=== PATIENT | female | born 1950 | race Caucasian/White ===

== ENCOUNTER 2019-10-24 18:26 | Observation (INO) | payer MEDICARE ==
[~2019-10-24] VITALS: Ht 160 cm; Wt 88.9 kg
[2019-10-24 18:33] VITALS: BP_SYST 201; BP_SYST 207; BP_DIAS 81; BP_DIAS 99
[2019-10-24] MEDS ORDERED: SUBLIMAZE IV STA ×2 (19:08→20:28)
[2019-10-24] MEDS ORDERED: ATIVAN IV STA ×2 (19:08→20:28)
[2019-10-24] MEDS ORDERED: VENTOLIN IH STA (19:08)
[2019-10-24] MEDS ORDERED: DECADRON IH STA (19:08)
[2019-10-24] MEDS ORDERED: ATIVAN ONE (19:20)
[2019-10-24] MEDS ORDERED: SUBLIMAZE ONE (19:20)
--- NOTE | 2019-10-24 19:30 | ER.PDOC ---
General Chief Complaint: Extremities Stated Complaint: HIP PAIN Time seen by MD: 18:55 Source: patient, family Exam Limitations: no limitations History of Present Illness Initial Comments Patient c/o severe left hip/pelvis pain onset last night, progressively worsening until she is unable to ambulate at all. No history of fall or injury. She has had 2 surgeries on left hip (a total left hip and a revision, last surgery 2015). She also c/o persistent cough since July that was finally determined to be d/t massiel inhibitor. Dr. Hernandez changed her from enalipri to losartan this past week. Timing/Duration: yesterday Where Occured: home Quality: severe (rates pain 9/10), constant, sharp, stabbing Location: hip (L), pelvis Other Injuries: none (no report of any injury) Allergies: Coded Allergies: No Known Allergies (Unverified , 04/09/17) Past Medical History Medical History: arrhythmia, cardiac problems, diabetes, hypertension, thyroid disease Surgical History: hip, knee, shoulder, other Social History Alcohol Use: none Drug Use: none Review of Systems Constitutional: no symptoms reported EENTM: no symptoms reported Respiratory: cough (persistent, dry, wheezy cough since July of this year) Cardiovascular: no symptoms reported Gastrointestinal: no symptoms reported Musculoskeletal: joint pain (left hip/pelvis; no history of fall or recent injury) Skin: no symptoms reported Physical Exam General Appearance: No Apparent Distress, Obese Extremities: non-tender, no obvious injury, no pedal edema, hip pain on movement (left) Cardiovascular/Respiratory: Regular Rate, Rhythm, No Respiratory Distress, Wheezing (expiratory) Abdominal: Non-Tender Back: Other (tender low lumbar and sacrum) Extremities: No Evidence of Injury, No Pedal Edema, Pelvis Stable Neuro/Psych: Alert, mood/effect nml Skin: Normal Color Results/Orders Results/Orders Orders - CHEMO SKY DO Albuterol Sulfate (Ventolin) (10/24/19 19:08) Dexamethasone Sodium Phosphate (Decadron (10/24/19 19:08) Fentanyl Citrate/Pf (Sublimaze) (10/24/19 19:08) Lorazepam (Ativan) (10/24/19 19:08) Cbc With Auto Diff (10/24/19 19:08) Comprehensive Metabolic Panel (10/24/19 19:08) Ct Lumbar Wo Contrast (10/24/19 19:08) Ct Pelvis Wo Iv Contrast (10/24/19 19:08) Fentanyl Citrate/Pf (Sublimaze) (10/24/19 19:20) Lorazepam (Ativan) (10/24/19 19:20) Albuterol Sulfate (Ventolin) (10/24/19 19:38) Dexamethasone Sodium Phosphate (Decadron (10/24/19 19:38) Lorazepam (Ativan) (10/24/19 20:28) Fentanyl Citrate/Pf (Sublimaze) (10/24/19 20:28) Vital Signs Date Time Temp Pulse Resp B/P (MAP) Pulse Ox O2 Delivery O2 Flow Rate FiO2 10/24/19 19:59 69 18 92 10/24/19 19:48 78 18 94 10/24/19 18:33 98.7 83 18 207/99 (135) 96 Room Air 10/24/19 18:33 98.7 83 18 96 10/24/19 18:33 98.7 83 18 Administered Medications Medications (Trade) Dose Ordered Sig/Gill Route PRN Reason Start Time Stop Time Status Last Admin Dose Admin Albuterol Sulfate (Ventolin) 2.5 mg STAT STAT IH 10/24/19 19:08 10/24/19 19:13 DC 10/24/19 19:45 2.5 MG Fentanyl Citrate (Sublimaze) 100 mcg STAT STAT IV 10/24/19 19:08 10/24/19 19:13 DC 10/24/19 19:32 100 MCG Lorazepam (Ativan) 1 mg STAT STAT IV 10/24/19 19:08 10/24/19 19:13 DC 10/24/19 19:32 1 MG Laboratory Tests Test 10/24/19 19:20 White Blood Count 16.8 10^3/uL (4.5-11.0) H Red Blood Count 4.59 10^6/uL (4.00-5.20) Hemoglobin 12.6 g/dL (12.0-15.0) Hematocrit 35.8 % (36.0-46.0) L Mean Corpuscular Volume 78.0 fL (78-100) Mean Corpuscular Hemoglobin 27.5 pg (26-34) Mean Corpuscular Hemoglobin Concent 35.2 g/dL (33-36.5) Red Cell Distribution Width 14.1 % (11.5-14.5) Platelet Count 407 10^3/uL (150-400) H Mean Platelet Volume 9.1 fL (7.8-11.0) Neutrophils (%) (Auto) 88.5 % (41.0-85.0) H Lymphocytes (%) (Auto) 7.4 % (24.0-44.0) L Monocytes (%) (Auto) 3.7 % (5.0-12.0) L Neutrophils # (Auto) 14.9 10^3/uL (1.8-7.7) H Lymphocytes # (Auto) 1.25 10^3/uL1 (1.0-4.8) Monocytes # (Auto) 0.6 10^3/uL (0.3-0.8) Absolute Immature Granulocyte (auto 0.05 10^3 u/L (0-2) Absolute Eosinophils (auto) 0.0 10^3/uL (0.0-0.2) Immature Granulocytes % 0.30 % (0.00-0.50) Eosinophils % 0.0 % (0.0-5.0) Basophils % 0.1 % (0.0-0.2) Basophils # 0.0 10^3/uL (0.0-0.1) Sodium Level 120 mmol/L (132-145) *L Potassium Level 4.2 mmol/L (3.6-5.2) Chloride Level 85.0 mmol/L (96-109) L Carbon Dioxide Level 20.8 mmol/L (20.0-32) Anion Gap 18.4 Blood Urea Nitrogen 21 mg/dL (7-18) H Creatinine 0.92 mg/dL (0.59-1.40) Estimated GFR () 72.8 (>/=60) Est GFR (CKD-EPI)(Non-Afr Georgian) 60.2 (>/=60) BUN/Creatinine Ratio 22.0 Glucose Level 193 mg/dL (70-110) H Calcium Level 9.1 mg/dL (8.4-10.5) Total Bilirubin 0.5 mg/dL (0.2-1.0) Aspartate Amino Transferase (AST) 21 U/L (0-35) Alanine Aminotransferase (ALT) 21 U/L (12-78) Alkaline Phosphatase 67 U/L (50-136) Total Protein 7.0 g/dL (6.4-8.2) Albumin 3.8 g/dL (3.4-5.0) Globulin 3.2 Progress Progress sodium 120 EKG/XRAY/CT/US CT Comments: larg mass within left iliacus muscle; likely represents IM hemorrhage Consult/PCP Time Consult/PCP Called: 20:32 Consult/PCP: Dr. Shoemaker Reason/Comments: will admit #2 Time Consult/PCP Called: 20:36 Consult/PCP: Dr. Drake Reason/Comments: will consult--hold Eliquis Departure Time of Disposition: 20:36 Disposition: 09 ADMITTED INPATIENT Impression: Primary Impression: Intramuscular hematoma Additional Impression: Hyponatremia Condition: Improved Referrals: ESTEBAN HERNANDEZ MD (PCP) PRIMARY CARE PROVIDER Duration or Time Spent with Pa: 30 min Problem Qualifiers CHEMO SKY DO Oct 24, 2019 19:30
[2019-10-24 19:31] LABS: BASOPHIL % 0.1 % (0.0-0.2); LYMPHOCYTES # 1.25 10^3/uL1 (1.0-4.8); LYMPHOCYTES % 7.4 % (24.0-44.0); MEAN CORP HGB 27.5 pg (26-34); MONOCYTES # 0.6 10^3/uL (0.3-0.8); MONOCYTES % 3.7 % (5.0-12.0); NEUTROPHIL # 14.9 10^3/uL (1.8-7.7); NEUTROPHILS % 88.5 % (41.0-85.0); PLATELET COUNT 407 10^3/uL (150-400); RED CELL DISTRIBUTION WIDTH 14.1 % (11.5-14.5)
[2019-10-24] MEDS ORDERED: DECADRON ONE (19:38)
[2019-10-24] MEDS ORDERED: VENTOLIN IH ONE (19:38)
[2019-10-24 19:41] LABS: CALCIUM 9.1 mg/dL (8.4-10.5); CARBON DIOXIDE 20.8 mmol/L (20.0-32)
--- NOTE | 2019-10-24 20:04 | DIREP ---
PROCEDURE: CT SPINE LUMBAR W/O TECHNIQUE:Axial cuts were obtained through the lumbar spine. The images were viewed at bone settings. COMPARISON:None. INDICATIONS:low back pain with sciatica- hip replacement 2010, revision 2013 FINDINGS: ALIGNMENT:Grade 1 anterolisthesis of 7.4 mm of L4 with respect L5. VERTEBRAE:No evidence of acute fracture. There are large bridging enthesophyte seen laterally in the lower thoracic spine. There are large posterior osteophytes bridging L1-L2 that extend posteriorly by 9.6 mm and results in central canal stenosis. PARASPINAL AREA:Normal. 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 LUMBAR DISC LEVELS T12-L1:Severe loss of disc space with vacuum disc phenomena. Calcifications seen along the posterior aspect of the annulus with disc protrusion of 6.1 mm. L1-L2:Complete loss of disc space with trace vacuum disc phenomena and large bridging central enthesophytes results in significant high-grade central canal stenosis with AP dimension of the central canal measuring 5.3 mm. L2-L3:Right paracentral and foraminal disc protrusion that abuts the cord with AP dimension of the canal measuring 6.1 mm and stenosis of the right neural foramina. L3-L4:Mild loss of disc space. L4-L5:Marked loss of disc space. Anterolisthesis with ligamentum flavum and facet hypertrophy results in high-grade central canal stenosis with the AP diameter of the central canal of 4.7 mm. L5-S1:Marked loss of disc space with vacuum disc phenomena. CONCLUSION: No evidence of acute fracture. Multilevel degenerative disc and facet changes. This results in high-grade stenosis segment 2 large bridging bony osteophytes at L1/L2 and high-grade central canal stenosis of L4/L5 secondary to grade 1 anterolisthesis. MRI may prove helpful. Dictated by: Luis Daniel Bautista MD on 10/24/2019 at 07:54 PM
--- NOTE | 2019-10-24 20:07 | DIREP ---
PROCEDURE:CT PELVIS W/O COMPARISON:None. INDICATIONS:left pelvic pain with radiculopathy- hip replacement 2010, revision 2013 TECHNIQUE:Axial images were created through the pelvis without intravenous contrast material. No oral contrast was administered. Sagittal and coronal reconstructions were performed from source images. FINDINGS: AORTA/VASCULAR:There are aortic atherosclerotic calcifications present. No aneurysm. RETROPERITONEUM:Normal. No mass or adenopathy. BOWEL/MESENTERY:Normal. There is no intestinal obstruction, free fluid, free air or mesenteric inflammatory changes. ABDOMINAL WALL:Normal. No mass or hernia. PELVIC ORGANS:The uterus contains numerous calcifications within it. The ovaries are unremarkable. There is a slightly increased density mass seen within the left iliacus muscle that overall measures 5.8 x 5.5 x 8.6 cm in AP, transverse, and craniocaudal extent. BONES:Left hip prosthesis. Degenerative changes are seen in the spine. Moderate degenerative changes of the right hip. OTHER:Negative. CONCLUSION: 1. Mass within the musculature of the left iliacus muscle. This probably represents intramuscular hemorrhage. 2. Total left hip prosthesis. No dislocation. 3. Moderate degenerative changes in the right hip. Dictated by: Luis Daniel Bautista MD on 10/24/2019 at 08:03 PM
[2019-10-24] MEDS ORDERED: NS 1000ML 1,000 ML STA (20:34)
[2019-10-24] MEDS ORDERED: NS 1000ML 1,000 ML IV ONE (21:00)
[2019-10-24] MEDS ORDERED: ATIVAN IV PRN (21:00)
[2019-10-24] MEDS ORDERED: SUBLIMAZE IV PRN (21:00)
[2019-10-24] MEDS ORDERED: ZOFRAN IV PRN (21:00)
[2019-10-24] MEDS ORDERED: APIX5TAB PO (21:19)
[2019-10-24] MEDS ORDERED: OLME1TAB29 PO (21:19)
[2019-10-24] MEDS ORDERED: HYDR25TA9 PO (21:19)
[2019-10-24] MEDS ORDERED: MELO15TA24 PO (21:19)
[2019-10-24] MEDS ORDERED: METF-713 PO (21:19)
[2019-10-24] MEDS ORDERED: CARV3.122 PO (21:19)
[2019-10-24] MEDS ORDERED: VERA240C2 PO (21:19)
[2019-10-24] MEDS ORDERED: DEXL60CA2 PO (21:41)
[2019-10-24] MEDS ORDERED: ASPI-485 PO (21:41)
[2019-10-24] MEDS ORDERED: MAGN61TA PO (21:41)
[2019-10-24] MEDS ORDERED: DOXY100C2 PO (21:41)
[2019-10-24] MEDS ORDERED: GLIM1TAB7 PO (21:41)
[2019-10-24] MEDS ORDERED: CYCL10TA2 PO (21:41)
--- NOTE | 2019-10-24 22:20 | NUR ---
Arrival Pt arrived to floor via bed, received report from ER nurse and assumed care. No signs of distress noted nor reported.
[2019-10-24 23:00] VITALS: BP 184/102
[2019-10-24] MEDS: DILAUDID IV PRN (23:08)
[2019-10-25] VITALS: BP 184/102
[2019-10-25 04:35] VITALS: BP 132/90
[2019-10-25 06:01] LABS: BASOPHIL % 0.2 % (0.0-0.2); EOSINOPHIL % 0.1 % (0.0-5.0); LYMPHOCYTES # 2.21 10^3/uL1 (1.0-4.8); MEAN CORP HGB 27.5 pg (26-34); MONOCYTES % 7.3 % (5.0-12.0); NEUTROPHIL # 9.8 10^3/uL (1.8-7.7); NEUTROPHILS % 75.2 % (41.0-85.0); PLATELET COUNT 373 10^3/uL (150-400); RED CELL DISTRIBUTION WIDTH 14.5 % (11.5-14.5)
[2019-10-25 06:19] LABS: CALCIUM 8.8 mg/dL (8.4-10.5); CARBON DIOXIDE 25.7 mmol/L (20.0-32)
--- NOTE | 2019-10-25 07:11 | PCM.HP ---
History of Present Illness Reason for Visit: (1) Intramuscular hematoma ICD Code: T14.8XXA - Other injury of unspecified body region, initial encounter SNOMED: 819993019 (2) Hyponatremia ICD Code: E87.1 - Hypo-osmolality and hyponatremia SNOMED: 93768128 Hx of Present Illness Patient c/o severe left hip/pelvis pain onset last night, progressively worseni ng until she is unable to ambulate at all. No history of fall or injury. She has had 2 surgeries on left hip (a total left hip and a revision, last surgery 2015). She also c/o persistent cough since July that was finally determined to be d/t massiel inhibitor. Dr. Hernandez changed her from enalipril to losartan this past week. Hyponatremia has improved from 120 126 after overnight IV hydration. Increase of less than 1/2mmol/h. Patient does not endorse any symptoms associated with this. Patient does state that her pain is improving and she would like to mobilize to see if she is able to tolerate mobility to the degree where she could go home blood thinner has been held due to bleeding she takes Eliquis due to cardiac arrhythmia spoke with patient and her and they will advise the cardiology clinic of this change which will be short-term in the setting of an acute bleed we will use SCDs rather than medical anticoagulation due to the bleeding Travel History EBOLA RISK:Travel to/contact w: No Review of Systems Constitutional: No: Fever, Chills, Sweats, Weakness, Malaise, Other Eyes: No: Pain, Vision change, Conjunctivae inflammation, Eyelid inflammation, Other, Redness ENT: No: Ear pain, Ear discharge, Nose pain, Nose discharge, Nose congestion, Mouth pain, Mouth swelling, Throat pain, Throat swelling, Other Respiratory: No: Cough, Dry, Shortness of breath, SOB with excertion, Wheezing, Hemoptysis, Pleuritic Pain, Sputum, Wheezing, Other Cardiovascular: No: Chest Pain, Palpitations, Orthopnea, Paroxysmal Noc. Dyspnea, Edema, Lt Headedness, Other Gastrointestinal: No: Nausea, Vomiting, Abdominal Pain, Diarrhea, Constipation, Melena, Hematochezia, Other Genitourinary: No Dysuria, No Frequency, No Incontinence, No Hematuria, No Retention, No Other Musculoskeletal: other (Pain in left pelvis and left hip consistent with iliacus muscle hematoma); No: neck pain, shoulder pain, arm pain, back pain, hand pain, leg pain, foot pain Skin: No: Rash, Lesions, Jaundice, Bruising, Other Neurological: No: Weakness, Numbness, Incoordination, Change in speech, Confusion, Seizures, Other Allergies: Coded Allergies: No Known Allergies (Unverified , 04/09/17) Scheduled Apixaban (Eliquis), 5 MG PO BID, (Reported) Aspirin (Aspir 81), 81 MG PO DAILY24, (Reported) Carvedilol (Carvedilol), 3.125 MG PO BID, (Reported) Cyclobenzaprine Hcl (Flexeril), 10 MG PO TID, (Reported) Dexlansoprazole (Dexilant), 60 MG PO DAILY24, (Reported) Doxycycline Hyclate (Doxycycline Hyclate), 100 MG PO BID, (Reported) Glimepiride (Glimepiride), 1 MG PO DAILY24, (Reported) Hydrochlorothiazide (Hydrochlorothiazide), 25 MG PO DAILY24, (Reported) Magnesium Aspartate Hcl (Maginex), 400 MG PO BID, (Reported) Meloxicam (Meloxicam), 15 MG PO DAILY24, (Reported) Metformin Hcl (Metformin Hcl Er), 500 MG PO BID, (Reported) Olmesartan Med/Amlodipine/Hctz (Tribenzor 40-5-12.5 Mg Tablet), 1 EACH PO DAILY24, (Reported) Verapamil Hcl (Verapamil Er), 80 MG PO BID, (Reported) VTE VTE Risk Total Score: 2 VTE Risk Score VTE Risk: Score 0-1 = Low Risk (Aggressive mobilization; early ambulation; no VTE prophylaxis required) Score 2: Moderate Risk (Intermittent/Pneumatic Compression Device OR Lovenox/Heparin/Coumadin) Score 3-4: High Risk (Intermittent/Pneumatic Compression Device AND Lovenox/Heparin/Coumadin) Score > or =5: Highest Risk (Intermittent/Pneumatic Compression Device AND Lovenox/Heparin/Coumadin) Mechanical device ordered: Yes VTE VTE Present on Admission: No Currently receiving anticoagul: No VTE Risk Total Score: 2 Mechanical device ordered: Yes Exam Vital Signs Vital Signs Date Time Temp Pulse Resp B/P (MAP) Pulse Ox O2 Delivery O2 Flow Rate FiO2 10/25/19 04:35 97.5 74 16 132/90 (104) 94 Room Air General Appearance: Alert, Oriented X3 HEENT: Atraumatic, PERRLA, EOMI Respiratory: Clear to auscultation, Normal air movement Cardiovascular: Regular rate, Normal S1 Abdominal: Normal bowel sounds Extremities: No clubbing, No cyanosis, Other (Tenderness overlying left iliac is muscle with flexion of the left hip) Skin: No rash, No breakdown Neuro: Normal gait, Normal speech, Strength at 5/5 X4 ext, Normal tone, Sensation intact, Cranial nerves 3-12 NL Psych/Mental Status: Mental status NL, Mood NL Assessment/Plan Assessment/Plan Assessment/Plan Assessment 69-year-old female who takes chronic anticoagulation with Eliquis for cardiac arrhythmia who on Saturday started having increasing pain in her left hip that became severe interfering with her ability to walk which led her to call an ambulance to bring her to the ER CT CAT scan showed a 6 x 6 x 8 cm hematoma in her left iliac is muscle likely due to a spontaneous blood vessel rupture on Eliquis she did have hyponatremia at 120 but states that she has been asymptomatic with this. Dr. Drake with orthopedics kindly consulted and felt this is a nonsurgical problem that should resolve with conservative management and holding blood thinners Plan we will hold Eliquis for several days and have her restart in conjunction with her cardiology clinic mobilize as tolerated and monitor sodium with gentle IV hydration will restart home medications otherwise Problems: (1) Hyponatremia Status: Acute ICD Code: E87.1 - Hypo-osmolality and hyponatremia SNOMED: [id number] (2) Intramuscular hematoma Status: Acute ICD Code: T14.8XXA - Other injury of unspecified body region, initial encounter SNOMED: [id number] FRANCIA MCCAIN MD Oct 25, 2019 07:11
[2019-10-25] MEDS ORDERED: GLUCOPHAGE ONE (07:48)
[2019-10-25] MEDS ORDERED: ASPIRIN ONE (07:49)
[2019-10-25 07:55] VITALS: BP 181/99
[2019-10-25] MEDS: ASPIRIN EC PO SCH (07:59)
[2019-10-25] MEDS: AMARYL PO SCH (07:59)
[2019-10-25] MEDS: VIBRAMYCIN PO SCH ×2 (07:59→21:01)
[2019-10-25] MEDS: HYDROCHLOROTHIAZIDE PO SCH ×2 (07:59→09:00)
[2019-10-25] MEDS: FLEXERIL PO SCH ×3 (07:59→21:00)
[2019-10-25] MEDS: COREG PO SCH ×2 (07:59→21:01)
--- NOTE | 2019-10-25 07:59 | NUR ---
DR. TANYA MARTÍNEZ HERE TO SEE PT AT THIS TIME
[2019-10-25] MEDS ORDERED: NS 1000ML 1,000 ML IV ONE (08:00)
[2019-10-25] MEDS ORDERED: NORCO 5MG PO ONE (08:09)
[2019-10-25] MEDS: NORCO 5MG PO PRN ×3 (08:23→23:11)
--- NOTE | 2019-10-25 08:44 | HPH ---
ADMIT DATE: 10/25/2019 CHIEF COMPLAINT: Painful left hip. HISTORY OF PRESENT ILLNESS: The patient is a 69-year-old female who has been having pain about the left hip and upper leg for the last 2-3 days as my understanding. The patient does not recall any type of injury. She takes Eliquis for atrial fibrillation. The patient was having severe pain yesterday evening and was unable to ambulate without a cane. She was brought to the hospital where CT scan shows a mass within the left iliacus muscle probably consistent with an intramuscular hemorrhage. The patient again denies any type of an injury. She denies any fever or chills. She has had left total hip arthroplasty twice approximately 6 or 8 years ago. The patient states that she is some better this morning. PHYSICAL EXAMINATION: Exam today shows the patient is sitting up comfortably in her hospital bed, eating breakfast. She has no particular tenderness about the left thigh. There is no swelling about the left thigh. The patient is able to flex and extend her knee as well as the foot and ankle with no pain or weakness. There is normal sensation about the left lower extremity to light touch. She does have some pain with attempted hip flexion. The x-rays and subsequent CT scan show a mass within the musculature of the left iliacus muscle probably consistent with an intramuscular hemorrhage. Her total hip prosthesis appears to be intact and stable. ASSESSMENT: Intramuscular hemorrhage, left iliacus muscle. PLAN: I would advocate conservative treatment at this point including bed rest with holding of her blood thinners. I spoke with the hospitalist, she is in agreement. She has some other medical issues that the hospitalist is addressing. At this point, I do not recommend any surgical intervention. Derrick Drake MD DR: CADE/bhavin JOB# [id number]
[2019-10-25] MEDS: GLUCOPHAGE PO SCH ×2 (08:51→21:01)
[2019-10-25] MEDS: CALAN PO SCH ×2 (08:58→21:00)
[2019-10-25] MEDS: MOBIC PO SCH (08:58)
[2019-10-25] MEDS: PROTONIX PO SCH (08:58)
[2019-10-25] MEDS: COZAAR PO SCH (09:23)
[2019-10-25] MEDS: NORVASC PO SCH (09:23)
[2019-10-25] MEDS: DILAUDID IV PRN ×2 (16:21→23:28)
[2019-10-25] MEDS ORDERED: MAG-OX ONE (16:35)
[2019-10-25] MEDS: MAG-OX PO SCH (16:56)
[2019-10-25 16:57] VITALS: BP 153/80
[2019-10-25 19:10] VITALS: BP 136/64
[2019-10-25 23:40] VITALS: BP 132/67
[2019-10-26 04:16] VITALS: BP 132/62
[2019-10-26 05:08] LABS: BASOPHIL # 0.1 10^3/uL (0.0-0.1); BASOPHIL % 0.4 % (0.0-0.2); EOSINOPHIL % 0.1 % (0.0-5.0); LYMPHOCYTES # 1.77 10^3/uL1 (1.0-4.8); LYMPHOCYTES % 13.5 % (24.0-44.0); MEAN CORP HGB 27.8 pg (26-34); MONOCYTES # 0.7 10^3/uL (0.3-0.8); MONOCYTES % 5.5 % (5.0-12.0); NEUTROPHIL # 10.5 10^3/uL (1.8-7.7); PLATELET COUNT 403 10^3/uL (150-400); RED CELL DISTRIBUTION WIDTH 14.6 % (11.5-14.5)
[2019-10-26 05:25] LABS: CALCIUM 9.5 mg/dL (8.4-10.5); CARBON DIOXIDE 27.3 mmol/L (20.0-32)
[2019-10-26] MEDS: MAG-OX PO SCH (06:11)
[2019-10-26 08:26] VITALS: BP 147/75
[2019-10-26] MEDS: MOBIC PO SCH (08:33)
[2019-10-26] MEDS: ASPIRIN EC PO SCH (08:33)
[2019-10-26] MEDS: FLEXERIL PO SCH (08:34)
[2019-10-26] MEDS: HYDROCHLOROTHIAZIDE PO SCH ×2 (08:34→08:38)
[2019-10-26] MEDS: CALAN PO SCH (08:34)
[2019-10-26] MEDS: NORVASC PO SCH (08:34)
[2019-10-26] MEDS: NORCO 5MG PO PRN (08:34)
[2019-10-26] MEDS: PROTONIX PO SCH (08:35)
[2019-10-26] MEDS: GLUCOPHAGE PO SCH (08:35)
[2019-10-26] MEDS: AMARYL PO SCH (08:35)
[2019-10-26] MEDS: VIBRAMYCIN PO SCH (08:35)
[2019-10-26] MEDS: COREG PO SCH (08:35)
[2019-10-26] MEDS: COZAAR PO SCH (08:35)
[2019-10-26] MEDS ORDERED: HYDR-3468 PO (09:53)
--- NOTE | 2019-10-26 09:54 | PRM.DC ---
Subjective Subjective Date of Discharge: Oct 26, 2019 Time of Request to Discharge: 09:54 Subjective Patient feels much better today and has been ambulatory getting up and down pain has been controlled with Gravette. Patient will need a walker to ambulate at home Patient c/o severe left hip/pelvis pain onset last night, progressively worsening until she is unable to ambulate at all. No history of fall or injury. She has had 2 surgeries on left hip (a total left hip and a revision, last surgery 2015). She also c/o persistent cough since July that was finally determined to be d/t masisel inhibitor. Dr. Hernandez changed her from enalipril to losartan this past week. Hyponatremia has improved from 120 126 after overnight IV hydration. Increase of less than 1/2mmol/h. Patient does not endorse any symptoms associated with this. Patient does state that her pain is improving and she would like to mobilize to see if she is able to tolerate mobility to the degree where she could go home blood thinner has been held due to bleeding she takes Eliquis due to cardiac arrhythmia spoke with patient and her and they will advise the cardiology clinic of this change which will be short-term in the setting of an acute bleed we will use SCDs rather than medical anticoagulation due to the bleeding Exam Vital Signs Vital Signs Date Time Temp Pulse Resp B/P (MAP) Pulse Ox O2 Delivery O2 Flow Rate FiO2 10/26/19 08:38 147/75 10/26/19 08:35 59 10/26/19 08:26 97.6 18 99 Room Air General Appearance: Alert, Oriented X3, Cooperative HEENT: Atraumatic Respiratory: Clear to auscultation Cardiovascular: Regular rate Abdominal: Normal bowel sounds, Soft, No tenderness Extremities: No cyanosis, No edema, Other (Mild tenderness left hip) Skin: No rash, No breakdown, No lesions Neuro: Normal speech, Strength at 5/5 X4 ext, Normal tone, Cranial nerves 3-12 NL Psych/Mental Status: Mental status NL VTE VTE Risk Total Score: 2 VTE Risk Score VTE Risk: Score 0-1 = Low Risk (Aggressive mobilization; early ambulation; no VTE prophylaxis required) Score 2: Moderate Risk (Intermittent/Pneumatic Compression Device OR Lovenox/Heparin/Coumadin) Score 3-4: High Risk (Intermittent/Pneumatic Compression Device AND Lovenox/Heparin/Coumadin) Score > or =5: Highest Risk (Intermittent/Pneumatic Compression Device AND Lovenox/Heparin/Coumadin) Mechanical device ordered: Yes Objective Vitals and I/O Vital Sign - Last 24 Hours 10/25/19 10/25/19 10/25/19 10/25/19 15:50 16:57 19:10 20:02 Temp 97.8 97.7 Pulse 62 63 Resp 18 18 B/P (MAP) 153/80 (104) 136/64 (88) Pulse Ox 93 92 O2 Delivery Room Air Room Air Room Air Room Air 10/25/19 10/25/19 10/25/19 10/26/19 21:00 21:01 23:40 04:16 Temp 97.8 97.8 Pulse 63 63 60 60 Resp 18 18 B/P (MAP) 136/64 136/64 132/67 (88) 132/62 (85) Pulse Ox 92 91 O2 Delivery Room Air Room Air 10/26/19 10/26/19 10/26/19 10/26/19 08:26 08:34 08:34 08:34 Temp 97.6 Pulse 59 59 59 Resp 18 B/P (MAP) 147/75 (99) 147/75 147/75 147/75 Pulse Ox 99 O2 Delivery Room Air 10/26/19 10/26/19 10/26/19 08:35 08:35 08:38 Pulse 59 B/P (MAP) 147/75 147/75 147/75 Intake and Output 10/26/19 07:00 Output Total 1300 ml Balance -1300 ml General: Alert, Oriented X3 HEENT: Atraumatic, PERRLA, EOMI Lungs: Clear to auscultation, Normal air movement Heart: Regular rate, Normal S1 Abdomen: Normal bowel sounds Extremities: No clubbing, No cyanosis, Other (Tenderness overlying left iliac is muscle with flexion of the left hip) Neuro: Normal gait, Normal speech, Strength at 5/5 X4 ext, Normal tone, Sensation intact, Cranial nerves 3-12 NL Psych/Mental Status: Mental status NL, Mood NL All Results(Lab/Rad) Laboratory Tests Test 10/25/19 12:29 10/25/19 20:48 10/26/19 04:39 10/26/19 05:39 Bedside Glucose 118 164 146 White Blood Count 13.1 10^3/uL Red Blood Count 4.35 10^6/uL Hemoglobin 12.1 g/dL Hematocrit 35.2 % Mean Corpuscular Volume 80.9 fL Mean Corpuscular Hemoglobin 27.8 pg Mean Corpuscular Hemoglobin Concent 34.4 g/dL Red Cell Distribution Width 14.6 % Platelet Count 403 10^3/uL Mean Platelet Volume 9.2 fL Neutrophils (%) (Auto) 80.0 % Lymphocytes (%) (Auto) 13.5 % Monocytes (%) (Auto) 5.5 % Neutrophils # (Auto) 10.5 10^3/uL Lymphocytes # (Auto) 1.77 10^3/uL1 Monocytes # (Auto) 0.7 10^3/uL Absolute Immature Granulocyte (auto 0.06 10^3 u/L Absolute Eosinophils (auto) 0.0 10^3/uL Immature Granulocytes % 0.50 % Eosinophils % 0.1 % Basophils % 0.4 % Basophils # 0.1 10^3/uL Sodium Level 130 mmol/L Potassium Level 4.8 mmol/L Chloride Level 94.0 mmol/L Carbon Dioxide Level 27.3 mmol/L Anion Gap 13.5 Blood Urea Nitrogen 19 mg/dL Creatinine 1.01 mg/dL Estimated GFR () 65.4 Est GFR (CKD-EPI)(Non-Afr Dominican) 54.0 BUN/Creatinine Ratio 18.0 Glucose Level 136 mg/dL Calcium Level 9.5 mg/dL Total Bilirubin 0.3 mg/dL Aspartate Amino Transf (AST/SGOT) 15 U/L Alanine Aminotransferase (ALT/SGPT) 21 U/L Alkaline Phosphatase 65 U/L Total Protein 6.7 g/dL Albumin 3.7 g/dL Globulin 3.0 Current Medications Medications (Trade) Dose Ordered Sig/Gill Route PRN Reason Start Time Stop Time Status Last Admin Dose Admin Albuterol Sulfate (Ventolin) 2.5 mg STAT STAT IH 10/24/19 19:08 10/24/19 19:13 DC 10/24/19 19:45 Fentanyl Citrate (Sublimaze) 100 mcg STAT STAT IV 10/24/19 19:08 10/24/19 19:13 DC 10/24/19 19:32 Lorazepam (Ativan) 1 mg STAT STAT IV 10/24/19 19:08 10/24/19 19:13 DC 10/24/19 19:32 Fentanyl Citrate (Sublimaze) 50 mcg STK-MED ONCE .ROUTE 10/24/19 19:20 10/24/19 19:22 DC Lorazepam (Ativan) 2 mg STK-MED ONCE .ROUTE 10/24/19 19:20 10/24/19 19:22 DC Albuterol Sulfate (Ventolin) 2.5 mg STK-MED ONCE IH 10/24/19 19:38 10/24/19 19:41 DC Lorazepam (Ativan) 1 mg STAT STAT IV 10/24/19 20:28 10/24/19 21:44 DC 10/24/19 20:48 Fentanyl Citrate (Sublimaze) 50 mcg STAT STAT IV 10/24/19 20:28 10/24/19 21:44 DC 10/24/19 20:48 Sodium Chloride 1,000 ml @ 0 mls/hr Q0M STAT IV 10/24/19 20:34 10/24/19 21:44 DC 10/24/19 21:02 Sodium Chloride 1,000 ml @ 100 mls/hr OT ONCE IV 10/24/19 21:00 10/25/19 06:59 DC Fentanyl Citrate (Sublimaze) 100 mcg Q4H PRN IV pain 10/24/19 21:00 11/23/19 20:59 Ondansetron HCl (Zofran) 4 mg Q4H PRN IV NAUSEA / VOMITING 10/24/19 21:00 11/23/19 20:59 Lorazepam (Ativan) 1 mg Q4HR PRN IV ANXIETY 10/24/19 21:00 11/23/19 20:59 Hydromorphone HCl (Dilaudid) 0.5 mg Q4H PRN IV PAIN 7 - 10 10/24/19 23:00 11/23/19 22:59 10/25/19 23:28 Aspirin (Aspirin Ec) 81 mg DAILY24 PO 10/25/19 07:30 11/24/19 07:29 10/26/19 08:33 Carvedilol (Coreg) 3.125 mg BID PO 10/25/19 09:00 11/24/19 08:59 10/26/19 08:35 Cyclobenzaprine HCl (Flexeril) 10 mg TID PO 10/25/19 09:00 11/24/19 08:59 10/26/19 08:34 Glimepiride (Amaryl) 1 mg DAILY24 PO 10/25/19 07:30 11/24/19 07:29 10/26/19 08:35 Hydrochlorothiazide (Hydrochlorothiazide) 25 mg DAILY24 PO 10/25/19 07:30 11/24/19 07:29 10/26/19 08:34 Metformin HCl (Glucophage) 500 mg BID PO 10/25/19 09:00 11/24/19 08:59 10/26/19 08:35 Pantoprazole Sodium (Protonix) 40 mg DAILY PO 10/25/19 09:00 11/24/19 08:59 10/26/19 08:35 Magnesium Oxide (Mag-Ox) 400 mg 07,1900 PO 10/25/19 19:00 11/24/19 18:59 10/26/19 06:11 Meloxicam (Mobic) 15 mg DAILY PO 10/25/19 09:00 11/24/19 08:59 10/26/19 08:33 Losartan Potassium (Cozaar) 100 mg DAILY PO 10/25/19 09:00 11/24/19 08:59 10/26/19 08:35 Verapamil HCl (Calan) 80 mg BID PO 10/25/19 09:00 11/24/19 08:59 10/26/19 08:34 Doxycycline Hyclate (Vibramycin) 100 mg BID PO 10/25/19 09:00 11/24/19 08:59 10/26/19 08:35 Sodium Chloride 1,000 ml @ 100 mls/hr OT ONCE IV 10/25/19 08:00 10/25/19 17:59 DC 10/25/19 08:51 Metformin HCl (Glucophage) 500 mg STK-MED ONCE .ROUTE 10/25/19 07:48 10/25/19 07:50 DC Aspirin (Aspirin) 81 mg STK-MED ONCE .ROUTE 10/25/19 07:49 10/25/19 07:51 DC Acetaminophen/ Hydrocodone Bitart (Gravette 5mg) 1 ea STK-MED ONCE PO 10/25/19 08:09 10/25/19 08:11 DC Acetaminophen/ Hydrocodone Bitart (Gravette 5mg) 1 ea Q6HR PRN PO PAIN 4 - 6 10/25/19 08:30 9/1/20 08:29 10/26/19 08:34 Amlodipine Besylate (Norvasc) 5 mg DAILY PO 10/25/19 09:00 11/24/19 08:59 10/26/19 08:34 Hydrochlorothiazide (Hydrochlorothiazide) 12.5 mg DAILY PO 10/25/19 09:00 11/24/19 08:59 Magnesium Oxide (Mag-Ox) 400 mg STK-MED ONCE .ROUTE 10/25/19 16:35 10/25/19 16:37 DC Medication Reconciliation Scheduled Apixaban (Eliquis), 5 MG PO BID, (Reported) Aspirin (Aspir 81), 81 MG PO DAILY24, (Reported) Carvedilol (Carvedilol), 3.125 MG PO BID, (Reported) Cyclobenzaprine Hcl (Flexeril), 10 MG PO TID, (Reported) Dexlansoprazole (Dexilant), 60 MG PO DAILY24, (Reported) Doxycycline Hyclate (Doxycycline Hyclate), 100 MG PO BID, (Reported) Glimepiride (Glimepiride), 1 MG PO DAILY24, (Reported) Hydrochlorothiazide (Hydrochlorothiazide), 25 MG PO DAILY24, (Reported) Magnesium Aspartate Hcl (Maginex), 400 MG PO BID, (Reported) Meloxicam (Meloxicam), 15 MG PO DAILY24, (Reported) Metformin Hcl (Metformin Hcl Er), 500 MG PO BID, (Reported) Olmesartan Med/Amlodipine/Hctz (Tribenzor 40-5-12.5 Mg Tablet), 1 EACH PO DAILY24, (Reported) Verapamil Hcl (Verapamil Er), 80 MG PO BID, (Reported) Scheduled PRN Hydrocodone Bit/Acetaminophen (Gravette 5-325 Tablet), 1 EACH PO Q6HR PRN for PAIN 4 - 6 Plan Assessment Assessment 69-year-old female who takes chronic anticoagulation with Eliquis for cardiac arrhythmia who on Saturday started having increasing pain in her left hip that became severe interfering with her ability to walk which led her to call an ambulance to bring her to the ER CT CAT scan showed a 6 x 6 x 8 cm hematoma in her left iliac is muscle likely due to a spontaneous blood vessel rupture on Eliquis she did have hyponatremia at 120 but states that she has been asymptomatic with this. Dr. Drake with orthopedics kindly consulted and felt this is a nonsurgical problem that should resolve with conservative management and holding blood thinners Plan we will hold Eliquis for several days and have her restart in conjunction with her cardiology clinic mobilize as tolerated and monitor sodium with gentle IV hydration will restart home medications otherwise Home with Gravette for pain control short course, Follow-up with PCP to recheck sodium levels given hyponatremia in the hospital that is mostly resolved Plan My Orders - FRANCIA MCCAIN MD Procedure Category Date Status Time Pt Eval And Treat PT 10/25/19 Transmitted Mobility 12:23 Bedside Glucose LAB 10/25/19 Complete 12:29 Pt Clarify Mob. PT 10/25/19 Transmitted Treatment 13:07 Pt Clarify Mob. PT 10/25/19 Transmitted Treatment 13:08 Magnesium Oxide PHA 10/25/19 Complete (Mag-Ox) 16:35 Bedside Glucose LAB 10/25/19 Complete 20:48 Bedside Glucose LAB 10/26/19 Complete 05:39 Discharge DISCHARGE 10/26/19 Transmitted 09:49 FRANCIA MCCAIN MD Oct 26, 2019 09:54
--- NOTE | 2019-10-26 09:54 | PRM.PN ---
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 F/U as needed VTE VTE Risk Total Score: 2 VTE Risk Score VTE Risk: Score 0-1 = Low Risk (Aggressive mobilization; early ambulation; no VTE prophylaxis required) Score 2: Moderate Risk (Intermittent/Pneumatic Compression Device OR Lovenox/Heparin/Coumadin) Score 3-4: High Risk (Intermittent/Pneumatic Compression Device AND Lovenox/Heparin/Coumadin) Score > or =5: Highest Risk (Intermittent/Pneumatic Compression Device AND Lovenox/Heparin/Coumadin) Mechanical device ordered: Yes Review of Systems Constitutional: No: Fever, Chills, Sweats, Weakness, Malaise, Other Eyes: No: Pain, Vision change, Conjunctivae inflammation, Eyelid inflammation, Other, Redness ENT: No: Ear pain, Ear discharge, Nose pain, Nose discharge, Nose congestion, Mouth pain, Mouth swelling, Throat pain, Throat swelling, Other Respiratory: No: Cough, Dry, Shortness of breath, SOB with excertion, Wheezing, Hemoptysis, Pleuritic Pain, Sputum, Wheezing, Other Cardiovascular: No: Chest Pain, Palpitations, Orthopnea, Paroxysmal Noc. Dyspnea, Edema, Lt Headedness, Other Gastrointestinal: No: Nausea, Vomiting, Abdominal Pain, Diarrhea, Constipation, Melena, Hematochezia, Other Genitourinary: No Dysuria, No Frequency, No Incontinence, No Hematuria, No Retention, No Other Musculoskeletal: other (Pain in left pelvis and left hip consistent with iliacus muscle hematoma); No: neck pain, shoulder pain, arm pain, back pain, hand pain, leg pain, foot pain Skin: No: Rash, Lesions, Jaundice, Bruising, Other Neurological: No: Weakness, Numbness, Incoordination, Change in speech, Confusion, Seizures, Other Allergies: Coded Allergies: No Known Allergies (Unverified , 04/09/17) Scheduled Apixaban (Eliquis), 5 MG PO BID, (Reported) Aspirin (Aspir 81), 81 MG PO DAILY24, (Reported) Carvedilol (Carvedilol), 3.125 MG PO BID, (Reported) Cyclobenzaprine Hcl (Flexeril), 10 MG PO TID, (Reported) Dexlansoprazole (Dexilant), 60 MG PO DAILY24, (Reported) Doxycycline Hyclate (Doxycycline Hyclate), 100 MG PO BID, (Reported) Glimepiride (Glimepiride), 1 MG PO DAILY24, (Reported) Hydrochlorothiazide (Hydrochlorothiazide), 25 MG PO DAILY24, (Reported) Magnesium Aspartate Hcl (Maginex), 400 MG PO BID, (Reported) Meloxicam (Meloxicam), 15 MG PO DAILY24, (Reported) Metformin Hcl (Metformin Hcl Er), 500 MG PO BID, (Reported) Olmesartan Med/Amlodipine/Hctz (Tribenzor 40-5-12.5 Mg Tablet), 1 EACH PO DAILY24, (Reported) Verapamil Hcl (Verapamil Er), 80 MG PO BID, (Reported) Scheduled PRN Hydrocodone Bit/Acetaminophen (Berkey 5-325 Tablet), 1 EACH PO Q6HR PRN for PAIN 4 - 6 Objective Vitals and I/O Vital Sign - Last 24 Hours 10/25/19 10/25/19 10/25/19 10/25/19 15:50 16:57 19:10 20:02 Temp 97.8 97.7 Pulse 62 63 Resp 18 18 B/P (MAP) 153/80 (104) 136/64 (88) Pulse Ox 93 92 O2 Delivery Room Air Room Air Room Air Room Air 10/25/19 10/25/19 10/25/19 10/26/19 21:00 21:01 23:40 04:16 Temp 97.8 97.8 Pulse 63 63 60 60 Resp 18 18 B/P (MAP) 136/64 136/64 132/67 (88) 132/62 (85) Pulse Ox 92 91 O2 Delivery Room Air Room Air 10/26/19 10/26/19 10/26/19 10/26/19 08:26 08:34 08:34 08:34 Temp 97.6 Pulse 59 59 59 Resp 18 B/P (MAP) 147/75 (99) 147/75 147/75 147/75 Pulse Ox 99 O2 Delivery Room Air 10/26/19 10/26/19 10/26/19 08:35 08:35 08:38 Pulse 59 B/P (MAP) 147/75 147/75 147/75 Intake and Output 10/26/19 07:00 Output Total 1300 ml Balance -1300 ml General: Alert, Oriented X3 HEENT: Atraumatic, PERRLA, EOMI Neck: Supple, No JVD Lungs: Clear to auscultation, Normal air movement Heart: Regular rate, Normal S1 Abdomen: Normal bowel sounds Extremities: No clubbing, No cyanosis, Other (Tenderness overlying left iliac is muscle with flexion of the left hip) Neuro: Normal gait, Normal speech, Strength at 5/5 X4 ext, Normal tone, Sensation intact, Cranial nerves 3-12 NL Psych/Mental Status: Mental status NL, Mood NL All Results(Lab/Rad) Laboratory Tests Test 10/25/19 12:29 10/25/19 20:48 10/26/19 04:39 10/26/19 05:39 Bedside Glucose 118 164 146 White Blood Count 13.1 10^3/uL Red Blood Count 4.35 10^6/uL Hemoglobin 12.1 g/dL Hematocrit 35.2 % Mean Corpuscular Volume 80.9 fL Mean Corpuscular Hemoglobin 27.8 pg Mean Corpuscular Hemoglobin Concent 34.4 g/dL Red Cell Distribution Width 14.6 % Platelet Count 403 10^3/uL Mean Platelet Volume 9.2 fL Neutrophils (%) (Auto) 80.0 % Lymphocytes (%) (Auto) 13.5 % Monocytes (%) (Auto) 5.5 % Neutrophils # (Auto) 10.5 10^3/uL Lymphocytes # (Auto) 1.77 10^3/uL1 Monocytes # (Auto) 0.7 10^3/uL Absolute Immature Granulocyte (auto 0.06 10^3 u/L Absolute Eosinophils (auto) 0.0 10^3/uL Immature Granulocytes % 0.50 % Eosinophils % 0.1 % Basophils % 0.4 % Basophils # 0.1 10^3/uL Sodium Level 130 mmol/L Potassium Level 4.8 mmol/L Chloride Level 94.0 mmol/L Carbon Dioxide Level 27.3 mmol/L Anion Gap 13.5 Blood Urea Nitrogen 19 mg/dL Creatinine 1.01 mg/dL Estimated GFR () 65.4 Est GFR (CKD-EPI)(Non-Afr [place]) 54.0 BUN/Creatinine Ratio 18.0 Glucose Level 136 mg/dL Calcium Level 9.5 mg/dL Total Bilirubin 0.3 mg/dL Aspartate Amino Transf (AST/SGOT) 15 U/L Alanine Aminotransferase (ALT/SGPT) 21 U/L Alkaline Phosphatase 65 U/L Total Protein 6.7 g/dL Albumin 3.7 g/dL Globulin 3.0 Current Medications Medications (Trade) Dose Ordered Sig/Gill Route PRN Reason Start Time Stop Time Status Last Admin Dose Admin Albuterol Sulfate (Ventolin) 2.5 mg STAT STAT IH 10/24/19 19:08 10/24/19 19:13 DC 10/24/19 19:45 Fentanyl Citrate (Sublimaze) 100 mcg STAT STAT IV 10/24/19 19:08 10/24/19 19:13 DC 10/24/19 19:32 Lorazepam (Ativan) 1 mg STAT STAT IV 10/24/19 19:08 10/24/19 19:13 DC 10/24/19 19:32 Fentanyl Citrate (Sublimaze) 50 mcg STK-MED ONCE .ROUTE 10/24/19 19:20 10/24/19 19:22 DC Lorazepam (Ativan) 2 mg STK-MED ONCE .ROUTE 10/24/19 19:20 10/24/19 19:22 DC Albuterol Sulfate (Ventolin) 2.5 mg STK-MED ONCE IH 10/24/19 19:38 10/24/19 19:41 DC Lorazepam (Ativan) 1 mg STAT STAT IV 10/24/19 20:28 10/24/19 21:44 DC 10/24/19 20:48 Fentanyl Citrate (Sublimaze) 50 mcg STAT STAT IV 10/24/19 20:28 10/24/19 21:44 DC 10/24/19 20:48 Sodium Chloride 1,000 ml @ 0 mls/hr Q0M STAT IV 10/24/19 20:34 10/24/19 21:44 DC 10/24/19 21:02 Sodium Chloride 1,000 ml @ 100 mls/hr OT ONCE IV 10/24/19 21:00 10/25/19 06:59 DC Fentanyl Citrate (Sublimaze) 100 mcg Q4H PRN IV pain 10/24/19 21:00 11/23/19 20:59 Ondansetron HCl (Zofran) 4 mg Q4H PRN IV NAUSEA / VOMITING 10/24/19 21:00 11/23/19 20:59 Lorazepam (Ativan) 1 mg Q4HR PRN IV ANXIETY 10/24/19 21:00 11/23/19 20:59 Hydromorphone HCl (Dilaudid) 0.5 mg Q4H PRN IV PAIN 7 - 10 10/24/19 23:00 11/23/19 22:59 10/25/19 23:28 Aspirin (Aspirin Ec) 81 mg DAILY24 PO 10/25/19 07:30 11/24/19 07:29 10/26/19 08:33 Carvedilol (Coreg) 3.125 mg BID PO 10/25/19 09:00 11/24/19 08:59 10/26/19 08:35 Cyclobenzaprine HCl (Flexeril) 10 mg TID PO 10/25/19 09:00 11/24/19 08:59 10/26/19 08:34 Glimepiride (Amaryl) 1 mg DAILY24 PO 10/25/19 07:30 11/24/19 07:29 10/26/19 08:35 Hydrochlorothiazide (Hydrochlorothiazide) 25 mg DAILY24 PO 10/25/19 07:30 11/24/19 07:29 10/26/19 08:34 Metformin HCl (Glucophage) 500 mg BID PO 10/25/19 09:00 11/24/19 08:59 10/26/19 08:35 Pantoprazole Sodium (Protonix) 40 mg DAILY PO 10/25/19 09:00 11/24/19 08:59 10/26/19 08:35 Magnesium Oxide (Mag-Ox) 400 mg 0700,1900 PO 10/25/19 19:00 11/24/19 18:59 10/26/19 06:11 Meloxicam (Mobic) 15 mg DAILY PO 10/25/19 09:00 11/24/19 08:59 10/26/19 08:33 Losartan Potassium (Cozaar) 100 mg DAILY PO 10/25/19 09:00 11/24/19 08:59 10/26/19 08:35 Verapamil HCl (Calan) 80 mg BID PO 10/25/19 09:00 11/24/19 08:59 10/26/19 08:34 Doxycycline Hyclate (Vibramycin) 100 mg BID PO 10/25/19 09:00 11/24/19 08:59 10/26/19 08:35 Sodium Chloride 1,000 ml @ 100 mls/hr OT ONCE IV 10/25/19 08:00 10/25/19 17:59 DC 10/25/19 08:51 Metformin HCl (Glucophage) 500 mg STK-MED ONCE .ROUTE 10/25/19 07:48 10/25/19 07:50 DC Aspirin (Aspirin) 81 mg STK-MED ONCE .ROUTE 10/25/19 07:49 10/25/19 07:51 DC Acetaminophen/ Hydrocodone Bitart (Berkey 5mg) 1 ea STK-MED ONCE PO 10/25/19 08:09 10/25/19 08:11 DC Acetaminophen/ Hydrocodone Bitart (Berkey 5mg) 1 ea Q6HR PRN PO PAIN 4 - 6 10/25/19 08:30 11/24/19 08:29 10/26/19 08:34 Amlodipine Besylate (Norvasc) 5 mg DAILY PO 10/25/19 09:00 11/24/19 08:59 10/26/19 08:34 Hydrochlorothiazide (Hydrochlorothiazide) 12.5 mg DAILY PO 10/25/19 09:00 11/24/19 08:59 Magnesium Oxide (Mag-Ox) 400 mg STK-MED ONCE .ROUTE 10/25/19 16:35 10/25/19 16:37 DC Course Sepsis Screening Results: Posi: NEGATIVE Sepsis Qualifier/Stage: NO DEFINITE RISK Duration or Total Time Spent w: 30 min Vitals & review Data Vital Sign - Last 24 Hours 10/25/19 10/25/19 10/25/19 10/25/19 15:50 16:57 19:10 20:02 Temp 97.8 97.7 Pulse 62 63 Resp 18 18 B/P (MAP) 153/80 (104) 136/64 (88) Pulse Ox 93 92 O2 Delivery Room Air Room Air Room Air Room Air 10/25/19 10/25/19 10/25/19 10/26/19 21:00 21:01 23:40 04:16 Temp 97.8 97.8 Pulse 63 63 60 60 Resp 18 18 B/P (MAP) 136/64 136/64 132/67 (88) 132/62 (85) Pulse Ox 92 91 O2 Delivery Room Air Room Air 10/26/19 10/26/19 10/26/19 10/26/19 08:26 08:34 08:34 08:34 Temp 97.6 Pulse 59 59 59 Resp 18 B/P (MAP) 147/75 (99) 147/75 147/75 147/75 Pulse Ox 99 O2 Delivery Room Air 10/26/19 10/26/19 10/26/19 08:35 08:35 08:38 Pulse 59 B/P (MAP) 147/75 147/75 147/75 Intake and Output 10/26/19 07:00 Output Total 1300 ml Balance -1300 ml Laboratory Tests Test 10/24/19 19:20 10/25/19 05:15 10/25/19 12:29 10/25/19 20:48 White Blood Count 16.8 10^3/uL 13.0 10^3/uL Red Blood Count 4.59 10^6/uL 4.26 10^6/uL Hemoglobin 12.6 g/dL 11.7 g/dL Hematocrit 35.8 % 34.0 % Mean Corpuscular Volume 78.0 fL 79.8 fL Mean Corpuscular Hemoglobin 27.5 pg 27.5 pg Mean Corpuscular Hemoglobin Concent 35.2 g/dL 34.4 g/dL Red Cell Distribution Width 14.1 % 14.5 % Platelet Count 407 10^3/uL 373 10^3/uL Mean Platelet Volume 9.1 fL 9.3 fL Neutrophils (%) (Auto) 88.5 % 75.2 % Lymphocytes (%) (Auto) 7.4 % 17.0 % Monocytes (%) (Auto) 3.7 % 7.3 % Neutrophils # (Auto) 14.9 10^3/uL 9.8 10^3/uL Lymphocytes # (Auto) 1.25 10^3/uL1 2.21 10^3/uL1 Monocytes # (Auto) 0.6 10^3/uL 1.0 10^3/uL Absolute Immature Granulocyte (auto 0.05 10^3 u/L 0.03 10^3 u/L Absolute Eosinophils (auto) 0.0 10^3/uL 0.0 10^3/uL Immature Granulocytes % 0.30 % 0.20 % Eosinophils % 0.0 % 0.1 % Basophils % 0.1 % 0.2 % Basophils # 0.0 10^3/uL 0.0 10^3/uL Sodium Level 120 mmol/L 126 mmol/L Potassium Level 4.2 mmol/L 4.8 mmol/L Chloride Level 85.0 mmol/L 93.0 mmol/L Carbon Dioxide Level 20.8 mmol/L 25.7 mmol/L Anion Gap 18.4 12.1 Blood Urea Nitrogen 21 mg/dL 16 mg/dL Creatinine 0.92 mg/dL 0.83 mg/dL Estimated GFR () 72.8 82.0 Est GFR (CKD-EPI)(Non-Afr [place]) 60.2 67.8 BUN/Creatinine Ratio 22.0 19.0 Glucose Level 193 mg/dL 136 mg/dL Calcium Level 9.1 mg/dL 8.8 mg/dL Total Bilirubin 0.5 mg/dL 0.3 mg/dL Aspartate Amino Transf (AST/SGOT) 21 U/L 18 U/L Alanine Aminotransferase (ALT/SGPT) 21 U/L 22 U/L Alkaline Phosphatase 67 U/L 56 U/L Total Protein 7.0 g/dL 6.2 g/dL Albumin 3.8 g/dL 3.4 g/dL Globulin 3.2 2.8 Bedside Glucose 118 164 Test 10/26/19 04:39 10/26/19 05:39 White Blood Count 13.1 10^3/uL Red Blood Count 4.35 10^6/uL Hemoglobin 12.1 g/dL Hematocrit 35.2 % Mean Corpuscular Volume 80.9 fL Mean Corpuscular Hemoglobin 27.8 pg Mean Corpuscular Hemoglobin Concent 34.4 g/dL Red Cell Distribution Width 14.6 % Platelet Count 403 10^3/uL Mean Platelet Volume 9.2 fL Neutrophils (%) (Auto) 80.0 % Lymphocytes (%) (Auto) 13.5 % Monocytes (%) (Auto) 5.5 % Neutrophils # (Auto) 10.5 10^3/uL Lymphocytes # (Auto) 1.77 10^3/uL1 Monocytes # (Auto) 0.7 10^3/uL Absolute Immature Granulocyte (auto 0.06 10^3 u/L Absolute Eosinophils (auto) 0.0 10^3/uL Immature Granulocytes % 0.50 % Eosinophils % 0.1 % Basophils % 0.4 % Basophils # 0.1 10^3/uL Sodium Level 130 mmol/L Potassium Level 4.8 mmol/L Chloride Level 94.0 mmol/L Carbon Dioxide Level 27.3 mmol/L Anion Gap 13.5 Blood Urea Nitrogen 19 mg/dL Creatinine 1.01 mg/dL Estimated GFR () 65.4 Est GFR (CKD-EPI)(Non-Afr [place]) 54.0 BUN/Creatinine Ratio 18.0 Glucose Level 136 mg/dL Calcium Level 9.5 mg/dL Total Bilirubin 0.3 mg/dL Aspartate Amino Transf (AST/SGOT) 15 U/L Alanine Aminotransferase (ALT/SGPT) 21 U/L Alkaline Phosphatase 65 U/L Total Protein 6.7 g/dL Albumin 3.7 g/dL Globulin 3.0 Bedside Glucose 146 Current Medications Medications (Trade) Dose Ordered Sig/Gill PRN Reason Start Time Stop Time Status Last Admin Acetaminophen/ Hydrocodone Bitart (Berkey 5mg) 1 ea Q6HR PRN PAIN 4 - 6 10/25/19 08:30 11/24/19 08:29 10/26/19 08:34 Amlodipine Besylate (Norvasc) 5 mg DAILY 10/25/19 09:00 11/24/19 08:59 10/26/19 08:34 Aspirin (Aspirin Ec) 81 mg DAILY24 10/25/19 07:30 11/24/19 07:29 10/26/19 08:33 Carvedilol (Coreg) 3.125 mg BID 10/25/19 09:00 11/24/19 08:59 10/26/19 08:35 Cyclobenzaprine HCl (Flexeril) 10 mg TID 10/25/19 09:00 11/24/19 08:59 10/26/19 08:34 Doxycycline Hyclate (Vibramycin) 100 mg BID 10/25/19 09:00 11/24/19 08:59 10/26/19 08:35 Fentanyl Citrate (Sublimaze) 100 mcg Q4H PRN pain 10/24/19 21:00 11/23/19 20:59 Glimepiride (Amaryl) 1 mg DAILY24 10/25/19 07:30 11/24/19 07:29 10/26/19 08:35 Hydrochlorothiazide (Hydrochlorothiazide) 12.5 mg DAILY 10/25/19 09:00 11/24/19 08:59 Hydrochlorothiazide (Hydrochlorothiazide) 25 mg DAILY24 10/25/19 07:30 11/24/19 07:29 10/26/19 08:34 Hydromorphone HCl (Dilaudid) 0.5 mg Q4H PRN PAIN 7 - 10 10/24/19 23:00 11/23/19 22:59 10/25/19 23:28 Lorazepam (Ativan) 1 mg Q4HR PRN ANXIETY 10/24/19 21:00 11/23/19 20:59 Losartan Potassium (Cozaar) 100 mg DAILY 10/25/19 09:00 11/24/19 08:59 10/26/19 08:35 Magnesium Oxide (Mag-Ox) 400 mg 07,189910/25/19 19:00 11/24/19 18:59 10/26/19 06:11 Meloxicam (Mobic) 15 mg DAILY 10/25/19 09:00 11/24/19 08:59 10/26/19 08:33 Metformin HCl (Glucophage) 500 mg BID 10/25/19 09:00 11/24/19 08:59 10/26/19 08:35 Ondansetron HCl (Zofran) 4 mg Q4H PRN NAUSEA / VOMITING 10/24/19 21:00 11/23/19 20:59 Pantoprazole Sodium (Protonix) 40 mg DAILY 10/25/19 09:00 11/24/19 08:59 10/26/19 08:35 Verapamil HCl (Calan) 80 mg BID 10/25/19 09:00 11/24/19 08:59 10/26/19 08:34 LEVEL 1 SEPSIS INFECTION CRITE: None/Not assessed LEVEL 2-SIRS (LIST ALL THAT AP: [id number] Hematologic Evidence: None/Not assessed Hepatic Evidence: None/Not assessed Metabolic Evidence: None/Not assessed Neurological Evidence: None/Not assessed Respiratory Evidence: None/Not assessed Renal Evidence: None/Not assessed O2 Sat by Pulse Oximetry: 99 Assessment/Plan Assessment/Plan Assessment/Plan Assessment 69-year-old female who takes chronic anticoagulation with Eliquis for cardiac arrhythmia who on Saturday started having increasing pain in her left hip that became severe interfering with her ability to walk which led her to call an ambulance to bring her to the ER CT CAT scan showed a 6 x 6 x 8 cm hematoma in her left iliac is muscle likely due to a spontaneous blood vessel rupture on Eliquis she did have hyponatremia at 120 but states that she has been asymptomatic with this. Dr. Drake with orthopedics kindly consulted and felt this is a nonsurgical problem that should resolve with conservative management and holding blood thinners Plan we will hold Eliquis for several days and have her restart in conjunction with her cardiology clinic mobilize as tolerated and monitor sodium with gentle IV hydration will restart home medications otherwise Home with Berkey for pain control short course, Follow-up with PCP to recheck sodium levels given hypon atremia in the hospital that is mostly resolved FRANCIA MCCAIN MD Oct 26, 2019 09:54
--- NOTE | 2019-10-26 10:53 | NUR ---
DUE TO VOID DISCONTINUED CATHETER PER ASEPTIC TECHNIQUE, PATIENT EDUCATED PATIENT ON WHEN SHE IS DUE TO VOID. PATIENT VERBALIZED UNDERSTANDING NO QUESTION OR CONCERNS PRESENTED AT THIS TIME.
--- NOTE | 2019-10-26 11:25 | PRM.PN ---
Subjective Subjective Date: Oct 26, 2019 Time: 11:23 Subjective Pain better this am Ambulatory with walker Wants to go home Hold blood thinner for several more days until she speaks with her oil sprayer F/U as needed VTE VTE Risk Total Score: 2 VTE Risk Score VTE Risk: Score 0-1 = Low Risk (Aggressive mobilization; early ambulation; no VTE prophylaxis required) Score 2: Moderate Risk (Intermittent/Pneumatic Compression Device OR Lovenox/Heparin/Coumadin) Score 3-4: High Risk (Intermittent/Pneumatic Compression Device AND Lovenox/Heparin/Coumadin) Score > or =5: Highest Risk (Intermittent/Pneumatic Compression Device AND Lovenox/Heparin/Coumadin) Mechanical device ordered: Yes Review of Systems Constitutional: No: Fever, Chills, Sweats, Weakness, Malaise, Other Eyes: No: Pain, Vision change, Conjunctivae inflammation, Eyelid inflammation, Other, Redness ENT: No: Ear pain, Ear discharge, Nose pain, Nose discharge, Nose congestion, Mouth pain, Mouth swelling, Throat pain, Throat swelling, Other Respiratory: No: Cough, Dry, Shortness of breath, SOB with excertion, Wheezing, Hemoptysis, Pleuritic Pain, Sputum, Wheezing, Other Cardiovascular: No: Chest Pain, Palpitations, Orthopnea, Paroxysmal Noc. Dyspnea, Edema, Lt Headedness, Other Gastrointestinal: No: Nausea, Vomiting, Abdominal Pain, Diarrhea, Constipation, Melena, Hematochezia, Other Genitourinary: No Dysuria, No Frequency, No Incontinence, No Hematuria, No Retention, No Other Musculoskeletal: other (Pain in left pelvis and left hip consistent with iliacus muscle hematoma); No: neck pain, shoulder pain, arm pain, back pain, hand pain, leg pain, foot pain Skin: No: Rash, Lesions, Jaundice, Bruising, Other Neurological: No: Weakness, Numbness, Incoordination, Change in speech, Confusion, Seizures, Other Allergies: Coded Allergies: No Known Allergies (Unverified , 04/09/17) Scheduled Apixaban (Eliquis), 5 MG PO BID, (Reported) Aspirin (Aspir 81), 81 MG PO DAILY24, (Reported) Carvedilol (Carvedilol), 3.125 MG PO BID, (Reported) Cyclobenzaprine Hcl (Flexeril), 10 MG PO TID, (Reported) Dexlansoprazole (Dexilant), 60 MG PO DAILY24, (Reported) Doxycycline Hyclate (Doxycycline Hyclate), 100 MG PO BID, (Reported) Glimepiride (Glimepiride), 1 MG PO DAILY24, (Reported) Hydrochlorothiazide (Hydrochlorothiazide), 25 MG PO DAILY24, (Reported) Magnesium Aspartate Hcl (Maginex), 400 MG PO BID, (Reported) Meloxicam (Meloxicam), 15 MG PO DAILY24, (Reported) Metformin Hcl (Metformin Hcl Er), 500 MG PO BID, (Reported) Olmesartan Med/Amlodipine/Hctz (Tribenzor 40-5-12.5 Mg Tablet), 1 EACH PO DAILY24, (Reported) Verapamil Hcl (Verapamil Er), 80 MG PO BID, (Reported) Scheduled PRN Hydrocodone Bit/Acetaminophen ([place] 5-325 Tablet), 1 EACH PO Q6HR PRN for PAIN 4 - 6 Objective Vitals and I/O Vital Sign - Last 24 Hours 10/25/19 10/25/19 10/25/19 10/25/19 15:50 16:57 19:10 20:02 Temp 97.8 97.7 Pulse 62 63 Resp 18 18 B/P (MAP) 153/80 (104) 136/64 (88) Pulse Ox 93 92 O2 Delivery Room Air Room Air Room Air Room Air 10/25/19 10/25/19 10/25/19 10/26/19 21:00 21:01 23:40 04:16 Temp 97.8 97.8 Pulse 63 63 60 60 Resp 18 18 B/P (MAP) 136/64 136/64 132/67 (88) 132/62 (85) Pulse Ox 92 91 O2 Delivery Room Air Room Air 10/26/19 10/26/19 10/26/19 10/26/19 08:26 08:34 08:34 08:34 Temp 97.6 Pulse 59 59 59 Resp 18 B/P (MAP) 147/75 (99) 147/75 147/75 147/75 Pulse Ox 99 O2 Delivery Room Air 10/26/19 10/26/19 10/26/19 10/26/19 08:35 08:35 08:38 10:43 Pulse 59 B/P (MAP) 147/75 147/75 147/75 O2 Delivery Room Air Intake and Output 10/26/19 07:00 Output Total 1300 ml Balance -1300 ml General: Alert, Oriented X3 HEENT: Atraumatic, PERRLA, EOMI Lungs: Clear to auscultation, Normal air movement Heart: Regular rate, Normal S1 Abdomen: Normal bowel sounds Extremities: No clubbing, No cyanosis, Other (Tenderness overlying left iliac is muscle with flexion of the left hip) Neuro: Normal gait, Normal speech, Strength at 5/5 X4 ext, Normal tone, Sensation intact, Cranial nerves 3-12 NL Psych/Mental Status: Mental status NL, Mood NL All Results(Lab/Rad) Laboratory Tests Test 10/25/19 12:29 10/25/19 20:48 10/26/19 04:39 10/26/19 05:39 Bedside Glucose 118 164 146 White Blood Count 13.1 10^3/uL Red Blood Count 4.35 10^6/uL Hemoglobin 12.1 g/dL Hematocrit 35.2 % Mean Corpuscular Volume 80.9 fL Mean Corpuscular Hemoglobin 27.8 pg Mean Corpuscular Hemoglobin Concent 34.4 g/dL Red Cell Distribution Width 14.6 % Platelet Count 403 10^3/uL Mean Platelet Volume 9.2 fL Neutrophils (%) (Auto) 80.0 % Lymphocytes (%) (Auto) 13.5 % Monocytes (%) (Auto) 5.5 % Neutrophils # (Auto) 10.5 10^3/uL Lymphocytes # (Auto) 1.77 10^3/uL1 Monocytes # (Auto) 0.7 10^3/uL Absolute Immature Granulocyte (auto 0.06 10^3 u/L Absolute Eosinophils (auto) 0.0 10^3/uL Immature Granulocytes % 0.50 % Eosinophils % 0.1 % Basophils % 0.4 % Basophils # 0.1 10^3/uL Sodium Level 130 mmol/L Potassium Level 4.8 mmol/L Chloride Level 94.0 mmol/L Carbon Dioxide Level 27.3 mmol/L Anion Gap 13.5 Blood Urea Nitrogen 19 mg/dL Creatinine 1.01 mg/dL Estimated GFR () 65.4 Est GFR (CKD-EPI)(Non-Afr Moroccan) 54.0 BUN/Creatinine Ratio 18.0 Glucose Level 136 mg/dL Calcium Level 9.5 mg/dL Total Bilirubin 0.3 mg/dL Aspartate Amino Transf (AST/SGOT) 15 U/L Alanine Aminotransferase (ALT/SGPT) 21 U/L Alkaline Phosphatase 65 U/L Total Protein 6.7 g/dL Albumin 3.7 g/dL Globulin 3.0 Current Medications Medications (Trade) Dose Ordered Sig/Gill Route PRN Reason Start Time Stop Time Status Last Admin Dose Admin Albuterol Sulfate (Ventolin) 2.5 mg STAT STAT IH 10/24/19 19:08 10/24/19 19:13 DC 10/24/19 19:45 Fentanyl Citrate (Sublimaze) 100 mcg STAT STAT IV 10/24/19 19:08 10/24/19 19:13 DC 10/24/19 19:32 Lorazepam (Ativan) 1 mg STAT STAT IV 10/24/19 19:08 10/24/19 19:13 DC 10/24/19 19:32 Fentanyl Citrate (Sublimaze) 50 mcg STK-MED ONCE .ROUTE 10/24/19 19:20 10/24/19 19:22 DC Lorazepam (Ativan) 2 mg STK-MED ONCE .ROUTE 10/24/19 19:20 10/24/19 19:22 DC Albuterol Sulfate (Ventolin) 2.5 mg STK-MED ONCE IH 10/24/19 19:38 10/24/19 19:41 DC Lorazepam (Ativan) 1 mg STAT STAT IV 10/24/19 20:28 10/24/19 21:44 DC 10/24/19 20:48 Fentanyl Citrate (Sublimaze) 50 mcg STAT STAT IV 10/24/19 20:28 10/24/19 21:44 DC 10/24/19 20:48 Sodium Chloride 1,000 ml @ 0 mls/hr Q0M STAT IV 10/24/19 20:34 10/24/19 21:44 DC 10/24/19 21:02 Sodium Chloride 1,000 ml @ 100 mls/hr OT ONCE IV 10/24/19 21:00 10/25/19 06:59 DC Fentanyl Citrate (Sublimaze) 100 mcg Q4H PRN IV pain 10/24/19 21:00 11/23/19 20:59 Ondansetron HCl (Zofran) 4 mg Q4H PRN IV NAUSEA / VOMITING 10/24/19 21:00 11/23/19 20:59 Lorazepam (Ativan) 1 mg Q4HR PRN IV ANXIETY 10/24/19 21:00 11/23/19 20:59 Hydromorphone HCl (Dilaudid) 0.5 mg Q4H PRN IV PAIN 7 - 10 10/24/19 23:00 11/23/19 22:59 10/25/19 23:28 Aspirin (Aspirin Ec) 81 mg DAILY24 PO 10/25/19 07:30 11/24/19 07:29 10/26/19 08:33 Carvedilol (Coreg) 3.125 mg BID PO 10/25/19 09:00 11/24/19 08:59 10/26/19 08:35 Cyclobenzaprine HCl (Flexeril) 10 mg TID PO 10/25/19 09:00 11/24/19 08:59 10/26/19 08:34 Glimepiride (Amaryl) 1 mg DAILY24 PO 10/25/19 07:30 11/24/19 07:29 10/26/19 08:35 Hydrochlorothiazide (Hydrochlorothiazide) 25 mg DAILY24 PO 10/25/19 07:30 11/24/19 07:29 10/26/19 08:34 Metformin HCl (Glucophage) 500 mg BID PO 10/25/19 09:00 11/24/19 08:59 10/26/19 08:35 Pantoprazole Sodium (Protonix) 40 mg DAILY PO 10/25/19 09:00 11/24/19 08:59 10/26/19 08:35 Magnesium Oxide (Mag-Ox) 400 mg 0700,1900 PO 10/25/19 19:00 11/24/19 18:59 10/26/19 06:11 Meloxicam (Mobic) 15 mg DAILY PO 10/25/19 09:00 11/24/19 08:59 10/26/19 08:33 Losartan Potassium (Cozaar) 100 mg DAILY PO 10/25/19 09:00 11/24/19 08:59 10/26/19 08:35 Verapamil HCl (Calan) 80 mg BID PO 10/25/19 09:00 11/24/19 08:59 10/26/19 08:34 Doxycycline Hyclate (Vibramycin) 100 mg BID PO 10/25/19 09:00 11/24/19 08:59 10/26/19 08:35 Sodium Chloride 1,000 ml @ 100 mls/hr OT ONCE IV 10/25/19 08:00 10/25/19 17:59 DC 10/25/19 08:51 Metformin HCl (Glucophage) 500 mg STK-MED ONCE .ROUTE 10/25/19 07:48 10/25/19 07:50 DC Aspirin (Aspirin) 81 mg STK-MED ONCE .ROUTE 10/25/19 07:49 10/25/19 07:51 DC Acetaminophen/ Hydrocodone Bitart ([place] 5mg) 1 ea STK-MED ONCE PO 10/25/19 08:09 10/25/19 08:11 DC Acetaminophen/ Hydrocodone Bitart ([place] 5mg) 1 ea Q6HR PRN PO PAIN 4 - 6 10/25/19 08:30 11/24/19 08:29 10/26/19 08:34 Amlodipine Besylate (Norvasc) 5 mg DAILY PO 10/25/19 09:00 11/24/19 08:59 10/26/19 08:34 Hydrochlorothiazide (Hydrochlorothiazide) 12.5 mg DAILY PO 10/25/19 09:00 11/24/19 08:59 Magnesium Oxide (Mag-Ox) 400 mg STK-MED ONCE .ROUTE 10/25/19 16:35 10/25/19 16:37 DC Course Sepsis Screening Results: Posi: NEGATIVE Sepsis Qualifier/Stage: NO DEFINITE RISK Duration or Total Time Spent w: 30 min Vitals & review Data Vital Sign - Last 24 Hours 10/25/19 10/25/19 10/25/19 10/25/19 15:50 16:57 19:10 20:02 Temp 97.8 97.7 Pulse 62 63 Resp 18 18 B/P (MAP) 153/80 (104) 136/64 (88) Pulse Ox 93 92 O2 Delivery Room Air Room Air Room Air Room Air 10/25/19 10/25/19 10/25/19 10/26/19 21:00 21:01 23:40 04:16 Temp 97.8 97.8 Pulse 63 63 60 60 Resp 18 18 B/P (MAP) 136/64 136/64 132/67 (88) 132/62 (85) Pulse Ox 92 91 O2 Delivery Room Air Room Air 10/26/19 10/26/19 10/26/19 10/26/19 08:26 08:34 08:34 08:34 Temp 97.6 Pulse 59 59 59 Resp 18 B/P (MAP) 147/75 (99) 147/75 147/75 147/75 Pulse Ox 99 O2 Delivery Room Air 10/26/19 10/26/19 10/26/19 08:35 08:35 08:38 Pulse 59 B/P (MAP) 147/75 147/75 147/75 Intake and Output 10/26/19 07:00 Output Total 1300 ml Balance -1300 ml Laboratory Tests Test 10/24/19 19:20 10/25/19 05:15 10/25/19 12:29 10/25/19 20:48 White Blood Count 16.8 10^3/uL 13.0 10^3/uL Red Blood Count 4.59 10^6/uL 4.26 10^6/uL Hemoglobin 12.6 g/dL 11.7 g/dL Hematocrit 35.8 % 34.0 % Mean Corpuscular Volume 78.0 fL 79.8 fL Mean Corpuscular Hemoglobin 27.5 pg 27.5 pg Mean Corpuscular Hemoglobin Concent 35.2 g/dL 34.4 g/dL Red Cell Distribution Width 14.1 % 14.5 % Platelet Count 407 10^3/uL 373 10^3/uL Mean Platelet Volume 9.1 fL 9.3 fL Neutrophils (%) (Auto) 88.5 % 75.2 % Lymphocytes (%) (Auto) 7.4 % 17.0 % Monocytes (%) (Auto) 3.7 % 7.3 % Neutrophils # (Auto) 14.9 10^3/uL 9.8 10^3/uL Lymphocytes # (Auto) 1.25 10^3/uL1 2.21 10^3/uL1 Monocytes # (Auto) 0.6 10^3/uL 1.0 10^3/uL Absolute Immature Granulocyte (auto 0.05 10^3 u/L 0.03 10^3 u/L Absolute Eosinophils (auto) 0.0 10^3/uL 0.0 10^3/uL Immature Granulocytes % 0.30 % 0.20 % Eosinophils % 0.0 % 0.1 % Basophils % 0.1 % 0.2 % Basophils # 0.0 10^3/uL 0.0 10^3/uL Sodium Level 120 mmol/L 126 mmol/L Potassium Level 4.2 mmol/L 4.8 mmol/L Chloride Level 85.0 mmol/L 93.0 mmol/L Carbon Dioxide Level 20.8 mmol/L 25.7 mmol/L Anion Gap 18.4 12.1 Blood Urea Nitrogen 21 mg/dL 16 mg/dL Creatinine 0.92 mg/dL 0.83 mg/dL Estimated GFR () 72.8 82.0 Est GFR (CKD-EPI)(Non-Afr Moroccan) 60.2 67.8 BUN/Creatinine Ratio 22.0 19.0 Glucose Level 193 mg/dL 136 mg/dL Calcium Level 9.1 mg/dL 8.8 mg/dL Total Bilirubin 0.5 mg/dL 0.3 mg/dL Aspartate Amino Transf (AST/SGOT) 21 U/L 18 U/L Alanine Aminotransferase (ALT/SGPT) 21 U/L 22 U/L Alkaline Phosphatase 67 U/L 56 U/L Total Protein 7.0 g/dL 6.2 g/dL Albumin 3.8 g/dL 3.4 g/dL Globulin 3.2 2.8 Bedside Glucose 118 164 Test 10/26/19 04:39 10/26/19 05:39 White Blood Count 13.1 10^3/uL Red Blood Count 4.35 10^6/uL Hemoglobin 12.1 g/dL Hematocrit 35.2 % Mean Corpuscular Volume 80.9 fL Mean Corpuscular Hemoglobin 27.8 pg Mean Corpuscular Hemoglobin Concent 34.4 g/dL Red Cell Distribution Width 14.6 % Platelet Count 403 10^3/uL Mean Platelet Volume 9.2 fL Neutrophils (%) (Auto) 80.0 % Lymphocytes (%) (Auto) 13.5 % Monocytes (%) (Auto) 5.5 % Neutrophils # (Auto) 10.5 10^3/uL Lymphocytes # (Auto) 1.77 10^3/uL1 Monocytes # (Auto) 0.7 10^3/uL Absolute Immature Granulocyte (auto 0.06 10^3 u/L Absolute Eosinophils (auto) 0.0 10^3/uL Immature Granulocytes % 0.50 % Eosinophils % 0.1 % Basophils % 0.4 % Basophils # 0.1 10^3/uL Sodium Level 130 mmol/L Potassium Level 4.8 mmol/L Chloride Level 94.0 mmol/L Carbon Dioxide Level 27.3 mmol/L Anion Gap 13.5 Blood Urea Nitrogen 19 mg/dL Creatinine 1.01 mg/dL Estimated GFR () 65.4 Est GFR (CKD-EPI)(Non-Afr Moroccan) 54.0 BUN/Creatinine Ratio 18.0 Glucose Level 136 mg/dL Calcium Level 9.5 mg/dL Total Bilirubin 0.3 mg/dL Aspartate Amino Transf (AST/SGOT) 15 U/L Alanine Aminotransferase (ALT/SGPT) 21 U/L Alkaline Phosphatase 65 U/L Total Protein 6.7 g/dL Albumin 3.7 g/dL Globulin 3.0 Bedside Glucose 146 Current Medications Medications (Trade) Dose Ordered Sig/Gill PRN Reason Start Time Stop Time Status Last Admin Acetaminophen/ Hydrocodone Bitart ([place] 5mg) 1 ea Q6HR PRN PAIN 4 - 6 10/25/19 08:30 11/24/19 08:29 10/26/19 08:34 Amlodipine Besylate (Norvasc) 5 mg DAILY 10/25/19 09:00 11/24/19 08:59 10/26/19 08:34 Aspirin (Aspirin Ec) 81 mg DAILY24 10/25/19 07:30 11/24/19 07:29 10/26/19 08:33 Carvedilol (Coreg) 3.125 mg BID 10/25/19 09:00 11/24/19 08:59 10/26/19 08:35 Cyclobenzaprine HCl (Flexeril) 10 mg TID 10/25/19 09:00 11/24/19 08:59 10/26/19 08:34 Doxycycline Hyclate (Vibramycin) 100 mg BID 10/25/19 09:00 11/24/19 08:59 10/26/19 08:35 Fentanyl Citrate (Sublimaze) 100 mcg Q4H PRN pain 10/24/19 21:00 11/23/19 20:59 Glimepiride (Amaryl) 1 mg DAILY24 10/25/19 07:30 11/24/19 07:29 10/26/19 08:35 Hydrochlorothiazide (Hydrochlorothiazide) 12.5 mg DAILY 10/25/19 09:00 11/24/19 08:59 Hydrochlorothiazide (Hydrochlorothiazide) 25 mg DAILY24 10/25/19 07:30 11/24/19 07:29 10/26/19 08:34 Hydromorphone HCl (Dilaudid) 0.5 mg Q4H PRN PAIN 7 - 10 10/24/19 23:00 11/23/19 22:59 10/25/19 23:28 Lorazepam (Ativan) 1 mg Q4HR PRN ANXIETY 10/24/19 21:00 11/23/19 20:59 Losartan Potassium (Cozaar) 100 mg DAILY 10/25/19 09:00 11/24/19 08:59 10/26/19 08:35 Magnesium Oxide (Mag-Ox) 400 mg 07,189910/25/19 19:00 11/24/19 18:59 10/26/19 06:11 Meloxicam (Mobic) 15 mg DAILY 10/25/19 09:00 11/24/19 08:59 10/26/19 08:33 Metformin HCl (Glucophage) 500 mg BID 10/25/19 09:00 11/24/19 08:59 10/26/19 08:35 Ondansetron HCl (Zofran) 4 mg Q4H PRN NAUSEA / VOMITING 10/24/19 21:00 11/23/19 20:59 Pantoprazole Sodium (Protonix) 40 mg DAILY 10/25/19 09:00 11/24/19 08:59 10/26/19 08:35 Verapamil HCl (Calan) 80 mg BID 10/25/19 09:00 11/24/19 08:59 10/26/19 08:34 LEVEL 1 SEPSIS INFECTION CRITE: None/Not assessed LEVEL 2-SIRS (LIST ALL THAT AP: [id number] Hematologic Evidence: None/Not assessed Hepatic Evidence: None/Not assessed Metabolic Evidence: None/Not assessed Neurological Evidence: None/Not assessed Respiratory Evidence: None/Not assessed Renal Evidence: None/Not assessed O2 Sat by Pulse Oximetry: 99 Assessment/Plan Assessment/Plan Assessment/Plan Assessment 69-year-old female who takes chronic anticoagulation with Eliquis for cardiac arrhythmia who on Saturday started having increasing pain in her left hip that became severe interfering with her ability to walk which led her to call an ambulance to bring her to the ER CT CAT scan showed a 6 x 6 x 8 cm hematoma in her left iliac is muscle likely due to a spontaneous blood vessel rupture on Eliquis she did have hyponatremia at 120 but states that she has been asymptomatic with this. Dr. Drake with orthopedics kindly consulted and felt this is a nonsurgical problem that should resolve with conservative management and holding blood thinners Plan we will hold Eliquis for several days and have her restart in conjunction with her cardiology clinic mobilize as tolerated and monitor sodium with gentle IV hydration will restart home medications otherwise Plan Assessment 69-year-old female who takes chronic anticoagulation with Eliquis for cardiac arrhythmia who on Saturday started having increasing pain in her left hip that became severe interfering with her ability to walk which led her to call an ambulance to bring her to the ER CT CAT scan showed a 6 x 6 x 8 cm hematoma in her left iliac is muscle likely due to a spontaneous blood vessel rupture on Eliquis she did have hyponatremia at 120 but states that she has been asymptomatic with this. Dr. Drake with orthopedics kindly consulted and felt this is a nonsurgical problem that should resolve with conservative management and holding blood thinners Plan we will hold Eliquis for several days and have her restart in conjunction with her cardiology clinic mobilize as tolerated and monitor sodium with gentle IV hydration will restart home medications otherwise PARIS DRAKE MD Oct 26, 2019 11:24
[2019-10-26 12:08] VITALS: BP 149/77
--- NOTE | 2019-10-26 13:28 | NUR ---
DISCHARGE PLAN CM AT BEDSIDE TO VISIT WITH PATIENT REGARDING D/C PLAN AND GOALS. PATIENT LIVES AT HOME WITH HER SPOUSE. SHE IS INDEPENDENT OF ADLS BUT WILL NEED A WALKER ON D/C. CM EDUCATED ON HH SERVICE AND PATIENT VERBALLY REFUSES AT THIS TIME. HER PCP IS DR CASILLAS. WALKER ORDER WAS FAXED TO [facility] AND PALUA ROSENBERG NOTIFIED. PATIENT WAS EDUCATED TO PICK WALKER UP AFTER D/C. DISCHARGE GOAL IS FOR PATIENT TO D/C HOME WITH HER SPOUSE BACK TO ROUTINE CARE. NO FURTHER NEEDS NOTED AT THIS TIME.
--- NOTE | 2019-10-26 14:00 | NUR ---
DISCHARGE DISCONTINUED IV PER ASEPTIC TECHNIQUE, CATHETER INTACT, NO S/S OF INFECTION NOTED AT THIS TIME. DISCHARGE PACKET GIVEN TO PATIENT. EDUCATION SESSION HELD WITH PATIENT PRIOR TO DISCHARGE IN THE FORUM OF VERBAL AND WRITTEN MATERIAL. EDUCATION SESSION INCLUDED FOLLOW UP APPOINTMENT, NEW MEDICATION AND S/E, WHEN TO SEEK IMMEDIATE MEDICAL CARE, WELL OTHER DISCHARGE INFORMATION. PATIENT VERBALIZED UNDERSTANDING, NO QUESTION OR CONCERNS PRESENTED AT THIS TIME. PATIENT LEFT UNIT VIA W/C, NO ACUTE DISTRESS NOTED. PATIENT LEFT VIA PRIVATE AUTO, RELINQUISHED CARE AT THIS TIME.
[2019-10-26 14:36] VITALS: BP 149/77
== END 2019-10-26 14:00 | disposition home or self-care (01) ==
LOC: EDBD 18:26 → EDSEX 18:26 → ER 18:26 → UNDOADMOB 20:40 → INTOOBSV 20:40 → MS 20:40 → EDBEDREQ 21:06 → UNDODISOB 10-26 14:00
PROVIDERS: ADMIT Family Medicine; ATTEND Family Medicine
DX: M79.81 Nontraumatic hematoma of soft tissue (principal); E87.1 Hypo-osmolality and hyponatremia; I10 Essential (primary) hypertension; E11.9 Type 2 diabetes mellitus without complications; E07.9 Disorder of thyroid, unspecified; I48.91 Unspecified atrial fibrillation; Z79.82 Long term (current) use of aspirin; Z79.899 Other long term (current) drug therapy; Z79.84 Long term (current) use of oral hypoglycemic drugs; Z79.01 Long term (current) use of anticoagulants; Z96.642 Presence of left artificial hip joint
CPT/HCPCS: 36415 ×3; 72131; 72192; 80053 ×3; 82948 ×4; 85025 ×3; 94640; 96361; 96374; 96375; 96376 ×2; 97116; 97161; 97530; 99285; G0378 ×4; J1100; J1170 ×3; J2060; J3010 ×2; J3490 ×4; J7030 ×3; J7613

== ENCOUNTER → 2021-03-13 | Outpatient (CLI) | payer MEDICARE ==
[~2021-03-13] MED LIST: APIX5TAB PO; ASPI-485 PO; CARV3.122 PO; CYCL10TA19 PO; DEXL60CA2 PO; DOXY100C5 PO; GLIM1TAB7 PO; HYDR-3468 PO; HYDR25TA9 PO; MAGN61TA PO; MELO15TA24 PO; METF-713 PO; OLME1TAB29 PO; VERA240C2 PO
== END | disposition home or self-care (01) ==
LOC: NPLAB 14:16
PROVIDERS: ATTEND Internal Medicine
DX: R05.9 Cough, unspecified (principal); Z20.822 Contact with and (suspected) exposure to COVID-19
CPT/HCPCS: 87426

== ENCOUNTER → 2022-02-05 | Outpatient (CLI) | payer MEDICARE ==
[~2022-02-05] MED LIST changes: +OLME-38 PO; -OLME1TAB29 PO
[2022-02-05 13:51] LABS: BASOPHIL # 0.1 10^3/uL (0.0-0.1); BASOPHIL % 0.6 % (0.0-0.2); EOSINOPHIL # 0.4 10^3/uL (0.0-0.2); EOSINOPHIL % 4.2 % (0.0-5.0); LYMPHOCYTES # 2.08 10^3/uL1 (1.0-4.8); MEAN CORP HGB 26.7 pg (26-34); MONOCYTES # 0.5 10^3/uL (0.3-0.8); MONOCYTES % 5.3 % (5.0-12.0); NEUTROPHIL # 5.7 10^3/uL (1.8-7.7); NEUTROPHILS % 65.8 % (41.0-85.0)
[2022-02-05 14:05] LABS: CARBON DIOXIDE 21.6 mmol/L (20.0-32)
== END | disposition home or self-care (01) ==
LOC: LAB 13:27
PROVIDERS: ATTEND Internal Medicine Cardiovascular Disease
DX: I48.0 Paroxysmal atrial fibrillation (principal)
CPT/HCPCS: 36415; 80048; 85025; 85610